=== PATIENT | female | born 1995 | race Caucasian/White ===

== ENCOUNTER 2019-12-28 17:35 | Emergency (ER) | payer BC ==
--- NOTE | 2019-12-28 17:39 | ERPHSYRPT ---
- History of Present Illness Time Seen by Provider: 12/28/19 17:38 Source: patient Exam Limitations: no limitations Physician History: This is a 24-year-old female with history of chronic recurring migraines. Patient took her Fioricet today and during the week without any benefit. patient denies head injury. Patient cannot take injectable morphine but can take Dilaudid and Toradol without any problems. Patient has a appointment with a neurologist (Dr. Monreal). This appointment is scheduled for approximately 1 week from today. Patient has not contacted her primary care physician. Patient is sensitive to light. She has mild nausea but no vomiting. Timing/Duration: week(s) (1) Head Pain Location: global Severity of Pain-Max: moderate Severity of Pain-Current: moderate Recent Head Trauma: no recent headache/trauma, chronic headaches Modifying Factors: Improves With: exposure to light, noise Associated Symptoms: sensitive to light Previous symptoms: same symptoms as today Allergies/Adverse Reactions: morphine Allergy (Mild, Verified 12/28/19 18:37) Penicillins Allergy (Mild, Verified 12/28/19 18:37) Home Medications: Butalb/Acetaminophen/Caffeine [Zjntuc-Aobesmyg-Zhxs 50-325-40] 1 tab PO Q4- 6HPRN PRN 12/28/19 [History] Triazolam 0.25 mg PO DAILY 12/28/19 [History] Hx Tetanus, Diphtheria Vaccination/Date Given: Yes (2009) - Review of Systems Constitutional: No Symptoms Eyes: No Symptoms Ears, Nose, & Throat: No Symptoms Respiratory: No Symptoms Cardiac: No Symptoms Abdominal/Gastrointestinal: No Symptoms Genitourinary Symptoms: No Symptoms Musculoskeletal: No Symptoms Skin: No Symptoms Neurological: Headache Psychological: No Symptoms Endocrine: No Symptoms Hematologic/Lymphatic: No Symptoms Immunological/Allergic: No Symptoms All Other Systems: Reviewed and Negative - Past Medical History Pertinent Past Medical History: Yes Neurological History: No Pertinent History ENT History: No Pertinent History Cardiac History: No Pertinent History Respiratory History: No Pertinent History Endocrine Medical History: No Pertinent History Musculoskeletal History: No Pertinent History GI Medical History: No Pertinent History History: No Pertinent History Psycho-Social History: Depression Female Reproductive Disorders: No Pertinent History Other Medical History: KIDNEY STONE - Past Surgical History Past Surgical History: Yes Neuro Surgical History: No Pertinent History Cardiac: No Pertinent History Respiratory: No Pertinent History Gastrointestinal: Appendectomy, Hernia Repair Genitourinary: No Pertinent History Musculoskeletal: No Pertinent History Female Surgical History: No Pertinent History Other Surgical History: TONSILECTOMY - Social History Smoking Status: Never smoker Exposure to second hand smoke: Yes Drug Use: none Patient Lives Alone: No - Nursing Vital Signs Nursing Vital Signs: Initial Vital Signs Temperature 97.9 F 12/28/19 17:41 Pulse Rate 79 12/28/19 17:41 Respiratory Rate 18 12/28/19 17:41 Blood Pressure 140/87 12/28/19 17:41 O2 Sat by Pulse Oximetry 96 12/28/19 17:41 Pain Scale Pain Intensity 8 - Physical Exam General Appearance: moderate distress, alert, anxiety Eye Exam: PERRL/EOMI, eyes nml inspection Ears, Nose, Throat Exam: normal ENT inspection, moist mucous membranes Neck Exam: normal inspection, non-tender, supple, full range of motion Respiratory Exam: No chest tenderness Gastrointestinal/Abdominal Exam: No tenderness Back Exam: normal inspection, normal range of motion, No CVA tenderness, No vertebral tenderness Extremity Exam: normal inspection, normal range of motion, pelvis stable Mental Status Exam: alert, oriented x 3, 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 synthesis Exam: normal hearing, normal speech, PERRL, tongue midline, No abnormal speech, No facial weakness Coordination/Gait Exam: normal finger to nose, normal gait, normal cerebellar function Motor/Sensory Exam: no motor deficit, no sensory deficit Skin Exam: normal color, warm, dry Lymphatic Exam: No adenopathy SpO2 Interpretation: normal O2 Delivery: Room Air Ordered Tests: Active Orders 24 hr Category Date Time Status HEAD WITHOUT CONTRAST [CT] Stat Exams 12/28/19 17:54 Taken Medication Summary Discontinued Medications Generic Name Dose Route Start Last Admin Trade Name Reina PRN Reason Stop Dose Admin Hydromorphone HCl 1 mg 12/28/19 18:35 12/28/19 18:41 Hydromorphone 1 Mg/Ml Ampule IM 12/28/19 18:36 1 mg STAT ONE Administration Hydromorphone HCl Confirm 12/28/19 18:39 Hydromorphone 1 Mg/Ml Ampule Administered 12/28/19 18:40 Dose 1 mg .ROUTE .STK-MED ONE Ketorolac Tromethamine 60 mg 12/28/19 18:36 12/28/19 18:41 Toradol 30 Mg Injection IM 12/28/19 18:37 60 mg STAT ONE Administration Ketorolac Tromethamine Confirm 12/28/19 18:39 Toradol 30 Mg Injection Administered 12/28/19 18:40 Dose 60 mg .ROUTE .STK-MED ONE Promethazine HCl 12.5 mg 12/28/19 18:36 12/28/19 18:41 Phenergan 25 Mg Inj IM 12/28/19 18:37 12.5 mg STAT ONE Administration Promethazine HCl Confirm 12/28/19 18:39 Phenergan 25 Mg Inj Administered 12/28/19 18:40 Dose 25 mg .ROUTE .STK-MED ONE - Progress Progress: improved, re-examined Air Movement: good Progress Note: 12/28/19 18:45 CAT scan of the head reveals no acute intracranial process Blood Culture(s) Obtained: No Antibiotics given: No Counseled pt/family regarding: diagnosis, need for follow-up, rad results - Departure Departure Disposition: Home Clinical Impression: Migraine headache Condition: Stable Critical Care Time: No Referrals: BONI RAMIREZ [Primary Care Provider] - Additional Instructions: Take your medications as prescribed. Follow-up with your primary care physician and neurologist tomorrow for further management. Call tomorrow to arrange a follow-up appointment.
[2019-12-28] MEDS ORDERED: Hydromorphone 1 mg/ml Ampule IM ONE (18:35)
[2019-12-28] MEDS ORDERED: TORAdol 30 mg Injection IM ONE (18:36)
[2019-12-28] MEDS ORDERED: Phenergan 25 MG INJ IM ONE (18:36)
[2019-12-28] MEDS ORDERED: Phenergan 25 MG INJ ONE (18:39)
[2019-12-28] MEDS ORDERED: Hydromorphone 1 mg/ml Ampule ONE (18:39)
[2019-12-28] MEDS ORDERED: TORAdol 30 mg Injection ONE (18:39)
[2019-12-28 19:29] VITALS: BP 119/78; PULSE 74; O2SAT 98
--- NOTE | 2019-12-29 08:37 | XRAY ---
Indication: Headache 1 week. No known injury. Multiple contiguous axial images obtained through the head without contrast. Comparison: None Normal appearing brain parenchyma, ventricles, and bony calvarium. There is moderate mucosal thickening of both sphenoid and lesser degree both ethmoid sinuses with tiny left sphenoid sinus fluid leveling. Mastoid air cells are clear. Impression: Paranasal sinus disease. Remaining CT head without contrast exam is normal.
== END 2019-12-28 19:29 | disposition home or self-care (01) ==
LOC: ED 17:35
DX: G43.909 Migraine, unspecified, not intractable, without status migrainosus (principal); Z79.899 Other long term (current) drug therapy
CPT/HCPCS: 70450; 96372; 99284; J1170; J1885; J2550

== ENCOUNTER 2021-06-03 08:44 | Emergency (ER) | payer BC, OTHER ==
[2021-06-03 08:56] VITALS: O2SAT 97
[2021-06-03] MEDS ORDERED: Sodium Chloride 0.9% 1000 ML 1,000 ML IV STA (09:05)
[2021-06-03] MEDS ORDERED: CLINDAMYCIN-D5W 900 MG/50 ML*** 900 MG/50 ML BAG IV STA (09:06)
[2021-06-03] MEDS ORDERED: SUBLIMAZE 100 MCG/2 ML IV ONE (09:07)
[2021-06-03] MEDS ORDERED: SUBLIMAZE 100 MCG/2 ML ONE (09:15)
[2021-06-03] MEDS ORDERED: CLINDAMYCIN-D5W 900 MG/50 ML*** 900 MG/50 ML BAG IV ONE (09:16)
[2021-06-03] MEDS ORDERED: Sodium Chloride 0.9% 1000 ML 1,000 ML ONE (09:16)
--- NOTE | 2021-06-03 09:35 | ERPHSYRPT ---
- History of Present Illness Time Seen by Provider: 06/03/21 09:00 Source: patient Exam Limitations: no limitations Patient Subjective Stated Complaint: pt here for swelling to lips and face since saturday, she was placed on pain pills and steriod then and is not any better Triage Nursing Assessment: pt alert walked in, resp easy, skin w/d/p, has chiped front tooth, lips,eyes face swollen Physician History: Patient presents with several days of pain in the upper maxillary dental area and swelling of that area as well as now swelling onto the face and pain up the nose. She did see her dentist who did not feel this was a dental problem and started her on some steroids and some pain medicine but no antibiotics. She has had a similar episode and in that case as well was not thought to be dental by the dentist but he put her on antibiotics and she got better. Denies any other pain or problems the previous episode was 4 months ago. She has had no fever chills or sweats that she is aware of it is getting worse. Timing/Duration: gradual onset Severity: severe ENT Location: nose, mouth, dental Prearrival Treatment: prescription meds (Steroids and pain pills) Modifying Factors: Improves With: nothing Associated Symptoms: facial pain/swelling, tooth pain Allergies/Adverse Reactions: morphine Allergy (Mild, Verified 06/03/21 09:02) Penicillins Allergy (Mild, Verified 06/03/21 09:02) Home Medications: Ketorolac Tromethamine [Toradol] 1 ea TID 06/03/21 [History] Prednisone 10 mg [Deltasone 10 mg] 1 ea DAILY 06/03/21 [History] Hx Tetanus, Diphtheria Vaccination/Date Given: Yes (2009) Hx Influenza Vaccination/Date Given: No Hx Pneumococcal Vaccination/Date Given: No Immunizations Up to Date: Yes Travel Risk - International Travel Have you traveled outside of the country in past 3 weeks: No - Coronavirus Screening Are you exhibiting any of the following symptoms?: No - Vaccine Status Have you recieved a Covid-19 vaccination: No - Review of Systems Constitutional: No Fever, No Chills Eyes: No Symptoms Ears, Nose, & Throat: Nose Pain, Mouth Pain Respiratory: No Cough, No Dyspnea Cardiac: No Chest Pain, No Edema, No Syncope Abdominal/Gastrointestinal: No Abdominal Pain, No Nausea, No Vomiting, No Diarrhea Genitourinary Symptoms: No Dysuria Musculoskeletal: No Back Pain, No Neck Pain Skin: No Rash Neurological: No Dizziness, No Focal Weakness, No Sensory Changes Psychological: No Symptoms Endocrine: No Symptoms All Other Systems: Reviewed and Negative - Past Medical History Pertinent Past Medical History: Yes Neurological History: No Pertinent History ENT History: No Pertinent History Cardiac History: No Pertinent History Respiratory History: No Pertinent History Endocrine Medical History: No Pertinent History Musculoskeletal History: No Pertinent History GI Medical History: No Pertinent History History: No Pertinent History Psycho-Social History: Depression Female Reproductive Disorders: No Pertinent History Other Medical History: KIDNEY STONE - Past Surgical History Past Surgical History: Yes Neuro Surgical History: No Pertinent History Cardiac: No Pertinent History Respiratory: No Pertinent History Gastrointestinal: Appendectomy, Hernia Repair Genitourinary: No Pertinent History Musculoskeletal: No Pertinent History Female Surgical History: No Pertinent History Other Surgical History: TONSILECTOMY - Social History Smoking Status: Current every day smoker How long have you smoked: years Exposure to second hand smoke: No Drug Use: none Patient Lives Alone: No - Female History Hx Last Menstrual Period: april Hx Now: No - Nursing Vital Signs Nursing Vital Signs: Initial Vital Signs Temperature 97.1 F 06/03/21 08:55 Pulse Rate 102 H 06/03/21 08:55 Respiratory Rate 18 06/03/21 08:55 Blood Pressure 113/69 06/03/21 08:55 O2 Sat by Pulse Oximetry 97 06/03/21 08:55 Pain Scale Pain Intensity 8 - Physical Exam General Appearance: mild distress, alert Eye Exam: bilateral eye: normal inspection, PERRL, EOMI Ear Exam: bilateral ear: auricle normal, canal normal, TM normal Nasal Exam: sinus tenderness Throat Exam: pharynx normal, dental tenderness, maxillary swelling, moist mucus membranes, No tonsillar exudate Neck Exam: supple Cardiovascular/Respiratory Exam: normal breath sounds, regular rate/rhythm Abdominal Exam: non-tender, soft Neurologic Exam: alert, oriented x 3, sensation nml, No motor deficits Skin Exam: normal color, warm, dry SpO2 Interpretation: normal SpO2: 97 O2 Delivery: Room Air - Course Nursing assessment & vital signs reviewed: Yes - CT Exams Maxillofacial Bones CT Interpretation: Tele-radiologist Report (Cellulitis of the face without evidence of abscess or necrotizing infection) Ordered Tests: Active Orders 24 hr Category Date Time Status IV Insertion STAT Care 06/03/21 09:05 Active SINUSES WITHOUT CONTRAST [CT] Stat Exams 06/03/21 09:05 Taken BLOOD CULTURE Stat Lab 06/03/21 09:55 Received CBC W DIFF Stat Lab 06/03/21 09:55 Completed CMP Stat Lab 06/03/21 09:55 Completed Medication Summary Discontinued Medications Generic Name Dose Route Start Last Admin Trade Name Reina PRN Reason Stop Dose Admin Fentanyl Citrate 50 mcg 06/03/21 09:07 06/03/21 09:19 Sublimaze 100 Mcg/2 Ml IV 06/03/21 09:08 50 mcg STAT ONE Administration Fentanyl Citrate Confirm 06/03/21 09:15 Sublimaze 100 Mcg/2 Ml Administered 06/03/21 09:16 Dose 100 mcg .ROUTE .STK-MED ONE Sodium Chloride 1,000 mls @ 999 mls/hr 06/03/21 09:05 06/03/21 10:26 Sodium Chloride 0.9% 1000 Ml IV 06/03/21 10:05 Infused .Q1H1M STA Infusion Clindamycin HCl/Dextrose 900 mg in 50 mls @ 100 mls/hr 06/03/21 09:06 06/03/21 10:26 Clindamycin-D5w 900 Mg/50 Ml IV 06/03/21 09:35 Infused STAT STA Infusion Clindamycin HCl/Dextrose Confirm 06/03/21 09:16 Clindamycin-D5w 900 Mg/50 Ml Administered 06/03/21 09:17 Dose 900 mg in 50 mls @ ud IV .STK-MED ONE Sodium Chloride Confirm 06/03/21 09:16 Sodium Chloride 0.9% 1000 Ml Administered 06/03/21 09:17 Dose 1,000 mls @ ud .ROUTE .STK-MED ONE Oxycodone/Acetaminophen 1 tab 06/03/21 11:19 06/03/21 11:20 Percocet Tablet 5/325mg PO 06/03/21 11:20 1 tab STAT STA Administration Oxycodone/Acetaminophen Confirm 06/03/21 11:18 Percocet Tablet 5/325mg Administered 06/03/21 11:19 Dose 1 tab .ROUTE .STK-MED ONE Lab/Rad Data: Laboratory Result Diagrams 06/03/21 09:55 07/24/21 09:55 Laboratory Results 06/03/21 06/03/21 Range/Units 09:55 09:55 WBC 14.9 H (4.0-10.5) K/mm3 RBC 4.73 (4.1-5.4) M/mm3 Hgb 14.1 (12.0-16.0) gm/dl Hct 43.0 (35-47) % MCV 90.9 (78-100) fl MCH 29.8 (26-32) pg MCHC 32.8 (32-36) g/dl RDW 14.8 H (11.5-14.0) % Plt Count 344 (150-450) K/mm3 MPV 10.7 (7.5-11.0) fl Gran % 81.4 H (36.0-66.0) % Eos # (Auto) 0.13 (0-0.5) Absolute Lymphs (auto) 1.42 (1.0-4.6) Absolute Monos (auto) 1.21 (0.0-1.3) Lymphocytes % 9.5 L (24.0-44.0) % Monocytes % 8.1 (0.0-12.0) % Eosinophils % 0.9 (0.00-5.0) % Basophils % 0.1 (0.0-0.4) % Absolute Granulocytes 12.17 H (1.4-6.9) Basophils # 0.01 (0-0.4) Sodium 141 (137-145) mmol/L Potassium 3.7 (3.5-5.1) mmol/L Chloride 106 (98-107) mmol/L Carbon Dioxide 26 (22-30) mmol/L Anion Gap 13.7 (5-15) MEQ/L BUN 12 (7-17) mg/dL Creatinine 0.62 (0.52-1.04) mg/dL Estimated GFR > 60.0 ML/MIN Glucose 99 (74-106) mg/dL Calcium 8.6 (8.4-10.2) mg/dL Total Bilirubin 0.50 (0.2-1.3) mg/dL AST 16 (14-36) U/L ALT 19 (0-35) U/L Alkaline Phosphatase 51 (38-126) U/L Serum Total Protein 7.1 (6.3-8.2) g/dL Albumin 4.0 (3.5-5.0) g/dL - Progress Progress: unchanged - Departure Departure Disposition: Home Clinical Impression: Cellulitis Condition: Stable Critical Care Time: No Referrals: RUTH CHRISTIE, [employer] [Primary Care Provider] - Instructions: Cellulitis (Skin Infection), Adult (DC) Prescriptions: Oxycodone HCl/Acetaminophen [Percocet 5-325 mg Tablet] 1 each PO Q6H PRN PRN #12 tablet MDD 4 PRN Reason: Pain clindamycin HCL [Cleocin HCl] 300 mg PO TID 10 Days #30 capsule
[2021-06-03 10:10] LABS: Absolute Neutrophil Ct (ANC) 12.17 (1.4-6.9); BASOPHIL % 0.1 % (0.0-0.4); Basophil (Absolute #) 0.01 (0-0.4); Eosinophil % 0.9 % (0.00-5.0); Eosinophil (Absolute #) 0.13 (0-0.5); Hemoglobin 14.1 gm/dl (12.0-16.0); Lymphocyte (Absolute #) 1.42 (1.0-4.6); Lymphocytes % 9.5 % (24.0-44.0); Mean Cell Volume 90.9 fl (78-100); Mean Corpuscular Hemoglobin 29.8 pg (26-32); Mean Corpuscular Hgb Concent. 32.8 g/dl (32-36); Mean Platelet Volume 10.7 fl (7.5-11.0); Monocyte (Absolute #) 1.21 (0.0-1.3); Monocytes % 8.1 % (0.0-12.0); Neutrophil % 81.4 % (36.0-66.0); Platelet Count 344 K/mm3 (150-450); Red Blood Count 4.73 M/mm3 (4.1-5.4); Red Cell Distribution Width 14.8 % (11.5-14.0); White Blood Count 14.9 K/mm3 (4.0-10.5)
[2021-06-03 10:23] LABS: ALKALINE PHOSPHATASE 51 U/L (38-126); ANION GAP 13.7 MEQ/L (5-15); BLOOD UREA NITROGEN 12 mg/dL (7-17); CHLORIDE 106 mmol/L (98-107); Calcium 8.6 mg/dL (8.4-10.2); Carbon Dioxide 26 mmol/L (22-30); Creatinine 1 0.62 mg/dL (0.52-1.04); EST GLOMERULAR FILTRATION RATE > 60.0 ML/MIN; Glucose 99 mg/dL (74-106); Potassium 3.7 mmol/L (3.5-5.1); SGOT/AST 16 U/L (14-36); SGPT/ALT 19 U/L (0-35); SODIUM 141 mmol/L (137-145); Total Protein 7.1 g/dL (6.3-8.2)
[2021-06-03] MEDS ORDERED: PERCOCET TABLET 5/325MG ONE (11:18)
[2021-06-03] MEDS ORDERED: PERCOCET TABLET 5/325MG PO STA (11:19)
[2021-06-03 11:25] VITALS: BP 113/75; PULSE 80
--- NOTE | 2021-06-03 19:14 | XRAY ---
Indication: Face swelling and pain 2 days. Multiple contiguous axial images obtained through the sinuses. Sagittal and coronal reformatted images obtained. Comparison: None There are few bilateral dental amalgams producing beam artifact limiting these levels. Floor of the maxillary sinuses demonstrates minimal mucosal thickening without fluid leveling. Remaining paranasal sinuses and nasal passages are clear. No acute fracture, suspicious bony lesions, or radiopaque foreign body. Minimal nasal septal deviation to the left. Mid face demonstrates mild soft tissue swelling bilaterally without focal fluid collection or air. Remaining visualized noncontrast soft tissues including orbits and base of the brain are unremarkable. Impression: 1. Mild bilateral facial soft tissue swelling, possible cellulitis in the right clinical setting. 2. Minimal maxillary sinus disease. Comment: Preliminary interpretation made by [facility]. No critical discrepancy.
== END 2021-06-03 11:45 | disposition home or self-care (01) ==
LOC: ED 08:44
DX: L03.211 Cellulitis of face (principal)
CPT/HCPCS: 36415; 70486; 80053; 85025; 87040; 96360; 96365; 96374; 99284; J3010; A9270-GY

== ENCOUNTER 2021-11-19 12:14 | Emergency (ER) | payer OTHER ==
[2012-08-14 12:17] VITALS: BP 118/67
== END 2021-11-19 13:41 | disposition left against medical advice (07) ==
LOC: ED 12:14
DX: Z53.21 Procedure and treatment not carried out due to patient leaving prior to being seen by health care provider (principal)

== ENCOUNTER 2022-06-14 22:01 | Emergency (ER) | payer OTHER ==
[2022-06-14] MEDS ORDERED: TORAdol 30 mg Injection IM ONE (22:32)
--- NOTE | 2022-06-14 23:00 | ERPHSYRPT ---
- History of Present Illness Time Seen by Provider: 06/14/22 22:03 Source: patient Exam Limitations: no limitations Patient Subjective Stated Complaint: pt states "I was mowing and went in to take a shower and could not stand on my leg." Triage Nursing Assessment: pt came into the er via wheelchair; pt is axo x4; c/o RLE pain; pt states 4/10 pain to RLE; pt states swelling and reddness present to RLE; mild swelling to rt calf; reddenss and abrasions present to rt perez; strong rt pedal pulses; cap refill >3 seconds; vitals wnl Physician History: 26-year-old female presented in the ER with chief complaint of right lower extremity pain since evening. Patient reports she did a push lawnmower and weed eating, later took a shower and was having difficulty standing. Does not remember any obvious fall or trauma. No pain in the foot. Has some abrasion on the lower leg. Moderate to severe sharp pain with standing and movements and better with resting. No fever or chills reported. Timing/Duration: today, constant, sudden, worse Quality: painful Severity: moderate, severe Location: extremities Possible Causes: no cause identified Associated Symptoms: rash, swelling/mass/lumps Allergies/Adverse Reactions: morphine Allergy (Mild, Verified 06/14/22 22:08) Difficulty Breathing Penicillins Allergy (Mild, Verified 06/14/22 22:08) Difficulty Breathing Hx Tetanus, Diphtheria Vaccination/Date Given: No (unknown) Hx Influenza Vaccination/Date Given: No Hx Pneumococcal Vaccination/Date Given: No Travel Risk - International Travel Have you traveled outside of the country in past 3 weeks: No - Coronavirus Screening Are you exhibiting any of the following symptoms?: No Close contact with a COVID-19 positive Pt in past 14-21 Days: No - Vaccine Status Have you recieved a Covid-19 vaccination: No - Review of Systems Constitutional: No Symptoms Ears, Nose, & Throat: No Symptoms Respiratory: No Symptoms Cardiac: No Symptoms Abdominal/Gastrointestinal: No Symptoms Genitourinary Symptoms: No Symptoms Musculoskeletal: No Symptoms Skin: Rash, Skin Lesions Neurological: No Symptoms Psychological: No Symptoms Endocrine: No Symptoms Hematologic/Lymphatic: No Symptoms Immunological/Allergic: No Symptoms - Past Medical History Pertinent Past Medical History: Yes Neurological History: No Pertinent History ENT History: No Pertinent History Cardiac History: No Pertinent History Respiratory History: No Pertinent History Endocrine Medical History: No Pertinent History Musculoskeletal History: No Pertinent History GI Medical History: No Pertinent History History: No Pertinent History Psycho-Social History: Depression Female Reproductive Disorders: No Pertinent History Other Medical History: KIDNEY STONE - Past Surgical History Past Surgical History: Yes Neuro Surgical History: No Pertinent History Cardiac: No Pertinent History Respiratory: No Pertinent History Gastrointestinal: Appendectomy, Hernia Repair Genitourinary: No Pertinent History Musculoskeletal: No Pertinent History Female Surgical History: Section Other Surgical History: TONSILECTOMY, section x3, biopsy to rt breast x3; tumor 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 breast - Social History Smoking Status: Current every day smoker How long have you smoked: years Exposure to second hand smoke: Yes Drug Use: none Patient Lives Alone: No - Female History Hx Now: No - Nursing Vital Signs Nursing Vital Signs: Initial Vital Signs Temperature 98.4 F 06/14/22 22:09 Pulse Rate 85 06/14/22 22:09 Respiratory Rate 18 06/14/22 22:09 Blood Pressure 132/88 06/14/22 22:09 O2 Sat by Pulse Oximetry 98 06/14/22 22:09 Pain Scale Pain Intensity 7 - Physical Exam General Appearance: no apparent distress, alert Eye Exam: PERRL/EOMI Ears, Nose, Throat Exam: normal ENT inspection Neck Exam: normal inspection, full range of motion Respiratory Exam: normal breath sounds, lungs clear Cardiovascular Exam: regular rate/rhythm, normal heart sounds Gastrointestinal/Abdomen Exam: soft, No tenderness Back Exam: normal inspection Extremity Exam: inflammation, tenderness (Anterior lower leg with abrasion, mild swelling, warm, tender to touch.) Neurologic Exam: alert, oriented x 3, cooperative Skin Exam: normal color, abrasion SpO2 Interpretation: normal SpO2: 98 O2 Delivery: Room Air Ordered Tests: Active Orders 24 hr Category Date Time Status ARTERIAL UNILAT/LTD LOWER EXT [US] Stat Exams 06/14/22 22:33 Ordered LOWER LEG Stat Exams 06/14/22 23:08 Taken VENOUS UNILAT/LIMITED EXTREMIT [US] Stat Exams 06/14/22 22:33 Taken BLOOD CULTURE Stat Lab 06/14/22 22:50 Received CBC W DIFF Stat Lab 06/14/22 22:40 Completed CMP Stat Lab 06/14/22 22:40 Received Medication Summary Generic Name Dose Route Start Last Admin Trade Name Reina PRN Reason Stop Dose Admin Trimethoprim/Sulfamethoxazole 1 tab 06/14/22 23:58 Smz/Tmp Ds Tablet 1 Tablet PO 06/14/22 23:59 STAT STA Discontinued Medications Generic Name Dose Route Start Last Admin Trade Name Reina PRN Reason Stop Dose Admin Ketorolac Tromethamine 30 mg 06/14/22 22:32 06/14/22 23:10 Ketorolac Tromethamine 30 Mg/Ml Inj IM 06/14/22 22:33 Not Given STAT ONE Ketorolac Tromethamine 30 mg 06/14/22 23:10 06/14/22 23:11 Ketorolac Tromethamine 30 Mg/Ml Inj IV 06/14/22 23:11 30 mg STAT ONE Administration Ketorolac Tromethamine Confirm 06/14/22 23:09 Ketorolac Tromethamine 30 Mg/Ml Inj Administered 06/14/22 23:10 Dose 30 mg .ROUTE .Stockpile-MED ONE Lab/Rad Data: Laboratory Result Diagrams 06/14/22 22:40 Laboratory Results 06/14/22 Range/Units 22:40 WBC 13.3 H (4.0-10.5) x10^3/uL RBC 4.96 (4.1-5.4) x10^6/uL Hgb 15.0 (12.0-16.0) g/dL Hct 45.4 (35-47) % MCV 91.5 (78-100) fL MCH 30.2 (26-32) pg MCHC 33.0 (32-36) g/dL RDW 13.3 (11.5-14.0) % Plt Count 395 (150-450) x10^3/uL MPV 10.6 (7.5-11.0) fL Gran % 64.8 (36.0-66.0) % Immature Gran % (Auto) 0.3 (0.00-0.4) % Nucleat RBC Rel Count 0.0 (0.00-0.1) % Eos # (Auto) 0.31 (0-0.5) x10^3/uL Immature Gran # (Auto) 0.04 H (0.00-0.03) x10^3u/L Absolute Lymphs (auto) 3.33 (1.0-4.6) x10^3/uL Absolute Monos (auto) 0.96 (0.0-1.3) x10^3/uL Absolute Nucleated RBC 0.00 (0.00-0.01) x10^3u/L Lymphocytes % 25.0 (24.0-44.0) % Monocytes % 7.2 (0.0-12.0) % Eosinophils % 2.3 (0.00-5.0) % Basophils % 0.4 (0.0-0.4) % Absolute Granulocytes 8.65 H (1.4-6.9) x10^3/uL Basophils # 0.05 (0-0.4) x10^3/uL - Progress Progress: improved Progress Note: 06/14/22 23:58 She is given symptomatic treatment for pain. She has a white count of 13. Rule out fracture, DVT and no arterial occlusion. Has some redness, possibly cellulitis from abrasion. Started on Bactrim. Recommended Tylenol/ibuprofen outpatient for pain control and primary care follow-up. Discussed signs symptoms of worsening needing return to ER which she seems understanding. Counseled pt/family regarding: lab results, diagnosis, need for follow-up, rad results - Departure Departure Disposition: Home Clinical Impression: Cellulitis, leg Condition: Stable Critical Care Time: No Referrals: [facility]RIST[facility] [Primary Care Provider] - Follow up/PCP as directed (1-2 days for reevaluation) Instructions: Cellulitis (Skin Infection), Adult ED Additional Instructions: Take Tylenol/ibuprofen as needed for pain. Keep it elevated. Follow-up with primary care for reevaluation in 1 to 2 days. Return to ER for increasing pain swelling, redness, fever chills or difficulty ambulation. Prescriptions: Ibuprofen 600 mg PO Q6HPRN PRN 10 Days #20 tablet PRN Reason: Pain Smz/Tmp Ds Tablet [Bactrim Ds Tablet] 1 udtab PO BID #14 tablet
[2022-06-14] MEDS ORDERED: TORAdol 30 mg Injection ONE (23:09)
[2022-06-14] MEDS ORDERED: TORAdol 30 mg Injection IV ONE (23:10)
[2022-06-14 23:22] VITALS: PULSE 82
[2022-06-14 23:47] LABS: Absolute Neutrophil Ct (ANC) 8.65 x10^3/uL (1.4-6.9); Basophil (Absolute #) 0.05 x10^3/uL (0-0.4); Eosinophil % 2.3 % (0.00-5.0); Eosinophil (Absolute #) 0.31 x10^3/uL (0-0.5); Hematocrit 45.4 % (35-47); Lymphocyte (Absolute #) 3.33 x10^3/uL (1.0-4.6); Mean Cell Volume 91.5 fL (78-100); Mean Corpuscular Hemoglobin 30.2 pg (26-32); Mean Platelet Volume 10.6 fL (7.5-11.0); Monocyte (Absolute #) 0.96 x10^3/uL (0.0-1.3); Monocytes % 7.2 % (0.0-12.0); Neutrophil % 64.8 % (36.0-66.0); Platelet Count 395 x10^3/uL (150-450); Red Blood Count 4.96 x10^6/uL (4.1-5.4); Red Cell Distribution Width 13.3 % (11.5-14.0); White Blood Count 13.3 x10^3/uL (4.0-10.5)
[2022-06-14 23:58] LABS: ALBUMIN 4.3 g/dL (3.5-5.0); ALKALINE PHOSPHATASE 65 U/L (38-126); BLOOD UREA NITROGEN 15 mg/dL (7-17); CHLORIDE 106 mmol/L (98-107); Calcium 9.1 mg/dL (8.4-10.2); Carbon Dioxide 24 mmol/L (22-30); Creatinine 1 0.72 mg/dL (0.52-1.04); EST GLOMERULAR FILTRATION RATE > 60.0 ML/MIN; Glucose 82 mg/dL (74-106); Potassium 3.6 mmol/L (3.5-5.1); SGOT/AST 29 U/L (14-36); SGPT/ALT 26 U/L (0-35); SODIUM 140 mmol/L (137-145); Total Protein 7.8 g/dL (6.3-8.2)
[2022-06-14] MEDS ORDERED: BACTRIM DS TABLET PO STA (23:58)
[2022-06-15 00:03] VITALS: BP 116/71; O2SAT 96
[2022-06-15] MEDS ORDERED: BACTRIM DS TABLET PO ONE (00:04)
--- NOTE | 2022-06-15 08:33 | XRAY ---
Exam: Duplex Doppler Ultrasound of the right lower extremity. Comparison: [None.] Indication: 26-year-old female with right lower extremity pain. Findings: The examination of the right lower extremity was carried out in the usual manner imaging architectural representative sections of the common femoral vein through the popliteal vein. The posterior tibial veins were also evaluated. Normal color flow was seen throughout. Normal spontaneous and phasic flow was seen at all architectural representative sections. There was normal transducer compression and doppler signal augmentation at all levels. The greater saphenous vein demonstrated within the proximal right thigh and reveal normal compression, color blood flow, and Doppler signal. Impression: 1. No evidence of deep venous thrombosis within the right lower extremity.
--- NOTE | 2022-06-15 08:37 | XRAY ---
Exam: Two-view (4 images) right lower leg series from 06/14/2022. Comparison: [None.] Indication: The patient push mowed her yard and has a swollen right lower leg and redness now. Findings: 2 AP images and 2 lateral images of the right lower leg were obtained. I see no acute fracture, periosteal reaction/callus, or other significant focal bone lesion. Both the right knee joint space and ankle mortise appear unremarkable. There is a tiny plantar right calcaneal spur. No radiopaque soft tissue foreign body is seen. Impression: 1. No fracture or other significant bone abnormality is seen within the right lower leg.
== END 2022-06-15 00:17 | disposition home or self-care (01) ==
LOC: ED 22:01
DX: L03.115 Cellulitis of right lower limb (principal); S80.811A Abrasion, right lower leg, initial encounter; M79.604 Pain in right leg; Z72.0 Tobacco use; Z28.310 Unvaccinated for COVID-19
CPT/HCPCS: 36415; 73590; 80053; 85025; 87040; 93971; 96374; 99283; J1885; A9270-GY

== ENCOUNTER 2022-06-16 10:29 | Emergency (ER) | payer OTHER ==
[2022-06-16 10:40] VITALS: O2SAT 97
[2022-06-16] MEDS ORDERED: TORAdol 30 mg Injection IM ONE (10:58)
[2022-06-16] MEDS ORDERED: TORAdol 30 mg Injection ONE (11:06)
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
[2022-06-16 11:55] VITALS: BP 121/73; PULSE 82
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
== END 2022-06-16 11:54 | disposition home or self-care (01) ==
LOC: ED 10:29
DX: S92.412A Displaced fracture of proximal phalanx of left great toe, initial encounter for closed fracture (principal); S90.32XA Contusion of left foot, initial encounter; Y04.8XXA Assault by other bodily force, initial encounter; Y92.59 Other trade areas as the place of occurrence of the external cause; M25.572 Pain in left ankle and joints of left foot; R51.9 Headache, unspecified; Z72.0 Tobacco use; Z28.310 Unvaccinated for COVID-19
CPT/HCPCS: 73610; 73630; 96372; 99283; J1885

== ENCOUNTER 2022-09-30 22:36 | Emergency (ER) | payer OTHER ==
[2022-09-30 23:38] VITALS: BP 126/80; O2SAT 98
--- NOTE | 2022-09-30 23:55 | ERPHSYRPT ---
- History of Present Illness Time Seen by Provider: 09/30/22 23:40 Patient Subjective Stated Complaint: L ankle pain after getting out of bed and rolling the ankle Triage Nursing Assessment: pt ambulatory to bed with self crutches from home, pt alert and acting appropriate for age, pt c/o L ankle pain after getting out of bed and twisting her ankle and heard a "pop", +2 pedal pulse on L foot Physician History: Patient is a 27-year-old white female who presents from home after suffering an ankle injury. She was laying and her left foot went to sleep and was used went to stand on it her ankle twisted causing a popping sensation and lateral pain. She does have a previous broken toe. Unrelated to tonight's injury. Method of Injury: twisted Occurred: just prior to arrival Quality: aching Severity of Pain-Max: moderate Severity of Pain-Current: moderate Lower Extremities Pain: ankle: left Modifying Factors: Improves With: movement Associated Symptoms: unable to bear weight Allergies/Adverse Reactions: morphine Allergy (Mild, Verified 09/30/22 23:31) Difficulty Breathing Penicillins Allergy (Mild, Verified 09/30/22 23:31) Difficulty Breathing Hx Tetanus, Diphtheria Vaccination/Date Given: Yes (unknown) Hx Influenza Vaccination/Date Given: No Hx Pneumococcal Vaccination/Date Given: No Immunizations Up to Date: Yes Travel Risk - International Travel Have you traveled outside of the country in past 3 weeks: No - Coronavirus Screening Are you exhibiting any of the following symptoms?: No Close contact with a COVID-19 positive Pt in past 14-21 Days: No - Vaccine Status Have you recieved a Covid-19 vaccination: No - Review of Systems Constitutional: No Fever, No Chills Eyes: No Symptoms Ears, Nose, & Throat: No Symptoms Respiratory: No Cough, No Dyspnea Cardiac: No Chest Pain, No Edema, No Syncope Abdominal/Gastrointestinal: No Abdominal Pain, No Nausea, No Vomiting, No Diarrhea Genitourinary Symptoms: No Dysuria Musculoskeletal: Joint Pain, Joint Swelling (Left ankle), No Back Pain, No Neck Pain Skin: No Rash Neurological: No Dizziness, No Focal Weakness, No Sensory Changes Psychological: No Symptoms Endocrine: No Symptoms All Other Systems: Reviewed and Negative - Past Medical History Pertinent Past Medical History: Yes Neurological History: No Pertinent History ENT History: No Pertinent History Cardiac History: No Pertinent History Respiratory History: No Pertinent History Endocrine Medical History: No Pertinent History Musculoskeletal History: No Pertinent History GI Medical History: No Pertinent History History: No Pertinent History Psycho-Social History: Depression Female Reproductive Disorders: No Pertinent History Other Medical History: KIDNEY STONE - Past Surgical History Past Surgical History: Yes Neuro Surgical History: No Pertinent History Cardiac: No Pertinent History Respiratory: No Pertinent History Gastrointestinal: Appendectomy, Hernia Repair Genitourinary: No Pertinent History Musculoskeletal: No Pertinent History Female Surgical History: Section Other Surgical History: TONSILECTOMY, section x3, biopsy to rt breast x3; tumor 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 breast - Social History Smoking Status: Current every day smoker How long have you smoked: years Exposure to second hand smoke: Yes Drug Use: none Patient Lives Alone: No - Female History Hx Last Menstrual Period: 09/28/2022 Hx Now: No - Nursing Vital Signs Nursing Vital Signs: Initial Vital Signs Temperature 97.4 F 09/30/22 23:32 Pulse Rate 94 H 09/30/22 23:32 Respiratory Rate 18 09/30/22 23:32 Blood Pressure 126/80 09/30/22 23:32 O2 Sat by Pulse Oximetry 98 09/30/22 23:32 Pain Scale Pain Intensity 8 - Physical Exam General Appearance: mild distress Eyes, Ears, Nose, Throat Exam: normal ENT inspection Neck Exam: normal inspection Cardiovascular/Respiratory Exam: no respiratory distress Back Exam: normal inspection, normal range of motion Hips Exam: bilateral: non-tender, normal inspection, normal range of motion, no evidence of injury Legs Exam: bilateral leg: non-tender, normal inspection, normal range of motion Knees Exam: bilateral knee: non-tender, normal inspection, normal range of motion Ankle Exam: left ankle: limited range of motion, pain, soft tissue tenderness, swelling Foot Exam: bilateral foot: non-tender, normal inspection, normal range of motion, no evidence of injury Neuro/Tendon Exam: normal sensation, normal motor functions, normal tendon functions Mental Status Exam: alert, oriented x 3 Skin Exam: normal color, warm, dry SpO2 Interpretation: normal SpO2: 98 O2 Delivery: Room Air Procedures - Splinting Time of Procedure: 23:57 Location of Splint: Left, Ankle Type of Splint: Air Cast Splint Applied By: ED Nurse Pre-Proc Neuro Vasc Exam: normal Post-Proc Neuro Vasc Exam: neurovascular intact - Course Nursing assessment & vital signs reviewed: Yes - Radiology Exams Left Ankle X-ray Interpretation: Interpreted by me, Negative Ordered Tests: Active Orders 24 hr Category Date Time Status ANKLE (3 VIEWS) Stat Exams 09/30/22 23:53 Taken - Progress Progress: improved - Departure Departure Disposition: Home Clinical Impression: Ankle sprain Condition: Stable Critical Care Time: No Referrals: RUTH CHRISTIE MOLD STRIPPER [Primary Care Provider] - Follow up/PCP as directed Instructions: Ankle Sprain (DC) Prescriptions: Hydrocodone/Acetaminophen [Hydrocodone-Acetamin 5-325 mg] 1 tab PO Q6HPRN PRN 2 Days #8 tablet MDD 4 PRN Reason: Pain
[2022-10-01 00:23] VITALS: PULSE 76
--- NOTE | 2022-10-01 08:48 | XRAY ---
Indication: Pain following injury. Comparison: June 16, 2022 3 view left ankle demonstrates new tiny nondisplaced cortical fracture cuboid bone of uncertain chronicity. Stable plantar heel spur. No other bony, articular, or soft tissue abnormalities. Comment: Fracture not reported by interpreting ER clinician. Telephone report given to Dr. Farah at 0848 hrs on Oct 01, 2022.
== END 2022-10-01 00:23 | disposition home or self-care (01) ==
LOC: ED 22:36
DX: S93.402A Sprain of unspecified ligament of left ankle, initial encounter (principal); X50.0XXA Overexertion from strenuous movement or load, initial encounter; Y92.003 Bedroom of unspecified non-institutional (private) residence as the place of occurrence of the external cause; Z72.0 Tobacco use; Z79.891 Long term (current) use of opiate analgesic; Z28.310 Unvaccinated for COVID-19
CPT/HCPCS: 73610; 99283

== ENCOUNTER 2023-05-24 20:22 | Emergency (ER) | payer OTHER ==
[2023-05-24] MEDS ORDERED: Hydromorphone 1 mg/ml Injection IV ONE (20:41)
[2023-05-24] MEDS ORDERED: Sodium Chloride 0.9% 1000 ML 1,000 ML IV STA (20:41)
[2023-05-24] MEDS ORDERED: PROTONIX 40 MG IV IV ONE ×2 (20:41→20:46)
[2023-05-24] MEDS ORDERED: Hydromorphone 1 mg/ml Injection ONE (20:46)
[2023-05-24] MEDS ORDERED: Sodium Chloride 0.9% 1000 ML 1,000 ML ONE (20:46)
--- NOTE | 2023-05-24 20:59 | ERPHSYRPT ---
- History of Present Illness Time Seen by Provider: 05/24/23 20:56 Historian: patient Exam Limitations: no limitations Patient Subjective Stated Complaint: abd pain Triage Nursing Assessment: pt brought back from vehicle via wheelchair by this RN. Pt alert and oriented x3, pleasant and cooperative. Pt c/o upper abd pain [place] Pt describes pain as a 10 and sharp, radiates under the the ribcage on both sides. LBM today. Pt denies any nausea or vomiting or diarrhea. Pt has a hx of hernia that was repaired approx 14 years ago. Physician History: Pt c/o upper abd pain which [place] Pt describes pain as a 10 and sharp, radiates under the the ribcage on both sides. LBM today. Pt denies any nausea or vomiting or diarrhea. Pt has a hx of hernia that was repaired approx 14 years ago. Timing/Duration: today Activities at Onset: none Quality: cramping Abdominal Pain Onset Location: epigastric Pain Radiation: back Severity of Pain-Current: moderate Modifying Factors: Improves With: nothing Associated Symptoms: denies symptoms Previous symptoms: same symptoms as today (140years ago) Body Map: 1 - pain Allergies/Adverse Reactions: morphine Allergy (Mild, Verified 05/24/23 20:42) Difficulty Breathing Penicillins Allergy (Mild, Verified 05/24/23 20:42) Difficulty Breathing Hx Tetanus, Diphtheria Vaccination/Date Given: Yes Hx Influenza Vaccination/Date Given: No Hx Pneumococcal Vaccination/Date Given: No Travel Risk - International Travel Have you traveled outside of the country in past 3 weeks: No - Coronavirus Screening Are you exhibiting any of the following symptoms?: No Close contact with a COVID-19 positive Pt in past 14-21 Days: No - Vaccine Status Have you recieved a Covid-19 vaccination: No - Review of Systems Constitutional: No Fever, No Chills Eyes: No Symptoms Ears, Nose, & Throat: No Symptoms Respiratory: No Cough, No Dyspnea Cardiac: No Chest Pain, No Edema, No Syncope Abdominal/Gastrointestinal: Abdominal Pain, No Nausea, No Vomiting, No Diarrhea Genitourinary Symptoms: No Dysuria Musculoskeletal: No Back Pain, No Neck Pain Skin: No Rash Neurological: No Dizziness, No Focal Weakness, No Sensory Changes Psychological: No Symptoms Endocrine: No Symptoms All Other Systems: Reviewed and Negative - Past Medical History Pertinent Past Medical History: Yes Neurological History: No Pertinent History ENT History: No Pertinent History Cardiac History: No Pertinent History Respiratory History: No Pertinent History Endocrine Medical History: No Pertinent History Musculoskeletal History: No Pertinent History GI Medical History: Gallbladder Disease History: No Pertinent History Psycho-Social History: Depression Female Reproductive Disorders: No Pertinent History Other Medical History: KIDNEY STONE - Past Surgical History Past Surgical History: Yes Neuro Surgical History: No Pertinent History Cardiac: No Pertinent History Respiratory: No Pertinent History Gastrointestinal: Appendectomy, Hernia Repair Genitourinary: No Pertinent History Musculoskeletal: No Pertinent History Female Surgical History: Section Other Surgical History: TONSILECTOMY, section x3, biopsy to rt breast x3; tumor 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 breast - Social History Smoking Status: Current every day smoker How long have you smoked: 10 yrs Exposure to second hand smoke: Yes Drug Use: none Patient Lives Alone: No - Female History Hx Last Menstrual Period: 2 weeks ago Hx Now: No - Nursing Vital Signs Nursing Vital Signs: Initial Vital Signs Temperature 97.5 F 05/24/23 20:29 Pulse Rate 111 H 05/24/23 20:29 Respiratory Rate 20 05/24/23 20:29 Blood Pressure 113/80 05/24/23 20:29 O2 Sat by Pulse Oximetry 97 05/24/23 20:29 Pain Scale Pain Intensity 8 - Physical Exam General Appearance: no apparent distress, alert Eye Exam: PERRL/EOMI, eyes nml inspection Ears, Nose, Throat Exam: normal ENT inspection, pharynx normal, moist mucous membranes Neck Exam: normal inspection, non-tender, supple, full range of motion Respiratory Exam: normal breath sounds, lungs clear, No respiratory distress Cardiovascular Exam: regular rate/rhythm, normal heart sounds Gastrointestinal/Abdomen Exam: soft, tenderness (epigatric area), No mass Back Exam: normal inspection, normal range of motion, No CVA tenderness, No vert ebral tenderness Extremity Exam: normal inspection, normal range of motion, pelvis stable Neurologic Exam: alert, oriented x 3, cooperative, normal mood/affect, nml cerebellar function, sensation nml, No motor deficits Skin Exam: normal color, warm, dry SpO2: 97 Ordered Tests: Active Orders 24 hr Category Date Time Status IV Insertion STAT Care 05/24/23 20:45 Active ABDOMEN AND PELVIS W/0 CONTRAS [CT] Stat Exams 05/24/23 20:41 Completed AMYLASE Stat Lab 05/24/23 20:45 Completed CBC W DIFF Stat Lab 05/24/23 20:45 Completed CMP Stat Lab 05/24/23 20:45 Completed HCG QUALITATIVE, SERUM Stat Lab 05/24/23 20:45 Completed LIPASE Stat Lab 05/24/23 20:45 Completed UA W/RFX UR CULTURE Stat Lab 05/24/23 20:45 Completed Urine Triage Profile Stat Lab 05/24/23 20:45 Completed Medication Summary Discontinued Medications Generic Name Dose Route Start Last Admin Trade Name Freq PRN Reason Stop Dose Admin Famotidine 20 mg 05/24/23 21:58 05/24/23 22:01 Famotidine 20 Mg/1 Vial IV 05/24/23 21:59 20 mg STAT ONE Administration Famotidine Confirm 05/24/23 22:01 Famotidine 20 Mg/1 Vial Administered 05/24/23 22:02 Dose 20 mg IV .STK-MED ONE Hydromorphone HCl 1 mg 05/24/23 20:41 05/24/23 20:50 Hydromorphone 1 Mg/1ml Inj IV 05/24/23 20:42 1 mg STAT ONE Administration Hydromorphone HCl Confirm 05/24/23 20:46 Hydromorphone 1 Mg/1ml Inj Administered 05/24/23 20:47 Dose 1 mg .ROUTE .STK-MED ONE Sodium Chloride 1,000 mls @ 999 mls/hr 05/24/23 20:41 05/24/23 21:51 Sodium Chloride 0.9% 1000 Ml IV 05/24/23 21:41 Infused .Q1H1M STA Infusion Sodium Chloride Confirm 05/24/23 20:46 Sodium Chloride 0.9% 1000 Ml Administered 05/24/23 20:47 Dose 1,000 mls @ ud .ROUTE .STK-MED ONE Ceftriaxone Sodium/Dextrose 1 g in 50 mls @ 100 mls/hr 05/24/23 21:36 21:42 Rocephin 1 Gm-D5w 50 Ml Bag IV 05/24/23 22:05 100 mls/hr STAT STA 100 mls/hr Administration Ceftriaxone Sodium/Dextrose Confirm 05/24/23 21:41 Rocephin 1 Gm-D5w 50 Ml Bag Administered 05/24/23 21:42 Dose 1 g in 50 mls @ ud IV .STK-MED ONE Pantoprazole Sodium 40 mg 05/24/23 20:41 05/24/23 20:50 Pantoprazole 40 Mg Vial IV 05/24/23 20:42 40 mg STAT ONE Administration Pantoprazole Sodium Confirm 05/24/23 20:46 Pantoprazole 40 Mg Vial Administered 05/24/23 20:47 Dose 40 mg IV .STK-MED ONE Lab/Rad Data: Laboratory Result Diagrams 05/24/23 20:45 05/24/23 20:45 Laboratory Results 05/24/23 05/24/23 05/24/23 Range/Units 20:45 20:45 20:45 WBC 19.1 H (4.0-10.5) x10^3/uL RBC 5.05 (4.1-5.4) x10^6/uL Hgb 15.2 (12.0-16.0) g/dL Hct 45.7 (35-47) % MCV 90.5 (78-100) fL MCH 30.1 (26-32) pg MCHC 33.3 (32-36) g/dL RDW 13.5 (11.5-14.0) % Plt Count 413 (150-450) x10^3/uL MPV 10.2 (7.5-11.0) fL Gran % 75.8 H (36.0-66.0) % Immature Gran % (Auto) 0.4 (0.00-0.4) % Nucleat RBC Rel Count 0.0 (0.00-0.1) % Eos # (Auto) 0.31 (0-0.5) x10^3/uL Immature Gran # (Auto) 0.07 H (0.00-0.03) x10^3u/L Absolute Lymphs (auto) 2.91 (1.0-4.6) x10^3/uL Absolute Monos (auto) 1.26 (0.0-1.3) x10^3/uL Absolute Nucleated RBC 0.00 (0.00-0.01) x10^3u/L Lymphocytes % 15.3 L (24.0-44.0) % Monocytes % 6.6 (0.0-12.0) % Eosinophils % 1.6 (0.00-5.0) % Basophils % 0.3 (0.0-0.4) % Absolute Granulocytes 14.45 H (1.4-6.9) x10^3/uL Basophils # 0.06 (0-0.4) x10^3/uL Sodium 141 (137-145) mmol/L Potassium 3.5 (3.5-5.1) mmol/L Chloride 107 (98-107) mmol/L Carbon Dioxide 23 (22-30) mmol/L Anion Gap 14.2 (5-15) MEQ/L BUN 12 (7-17) mg/dL Creatinine 0.66 (0.52-1.04) mg/dL Estimated GFR > 60.0 ML/MIN Glucose 119 H (74-106) mg/dL Calcium 9.0 (8.4-10.2) mg/dL Total Bilirubin 0.50 (0.2-1.3) mg/dL AST 30 (14-36) U/L ALT 38 H (0-35) U/L Alkaline Phosphatase 59 (38-126) U/L Serum Total Protein 8.2 (6.3-8.2) g/dL Albumin 4.3 (3.5-5.0) g/dL Amylase 59 (30-110) U/L Lipase 48 (23-300) U/L Serum HCG, Qual NEGATIVE (NEGATIVE) Urine Color (Yellow) Urine Appearance (Clear) Urine pH (4.6-8.0) Ur Specific [place] (1.005-1.030) Urine Protein (Negative) Urine Glucose (UA) (Negative) mg/dL Urine Ketones (Negative) Urine Blood (Negative) Urine Nitrite (Negative) Urine Bilirubin (Negative) Urine Urobilinogen (0.2) mg/dL Ur Leukocyte Esterase (Negative) U Hyaline Cast (Auto) (0-2) /LPF Urine Microscopic RBC (0-5) /HPF Urine Microscopic WBC (0-5) /HPF Ur Epithelial Cells (None Seen) /HPF Urine Bacteria (None Seen) /HPF Urine Culture Reflexed (NO) Urine Opiates Level (NEGATIVE) Ur Methadone (NEGATIVE) Urine Barbiturates (NEGATIVE) Ur Phencyclidine (PCP) (NEGATIVE) Urine Amphetamine (NEGATIVE) U Benzodiazepine Level (NEGATIVE) Urine Cocaine (NEGATIVE) Urine Marijuana (THC) (NEGATIVE) 05/24/23 05/24/23 Range/Units 20:45 20:45 WBC (4.0-10.5) x10^3/uL RBC (4.1-5.4) x10^6/uL Hgb (12.0-16.0) g/dL Hct (35-47) % MCV (78-100) fL MCH (26-32) pg MCHC (32-36) g/dL RDW (11.5-14.0) % Plt Count (150-450) x10^3/uL MPV (7.5-11.0) fL Gran % (36.0-66.0) % Immature Gran % (Auto) (0.00-0.4) % Nucleat RBC Rel Count (0.00-0.1) % Eos # (Auto) (0-0.5) x10^3/uL Immature Gran # (Auto) (0.00-0.03) x10^3u/L Absolute Lymphs (auto) (1.0-4.6) x10^3/uL Absolute Monos (auto) (0.0-1.3) x10^3/uL Absolute Nucleated RBC (0.00-0.01) x10^3u/L Lymphocytes % (24.0-44.0) % Monocytes % (0.0-12.0) % Eosinophils % (0.00-5.0) % Basophils % (0.0-0.4) % Absolute Granulocytes (1.4-6.9) x10^3/uL Basophils # (0-0.4) x10^3/uL Sodium (137-145) mmol/L Potassium (3.5-5.1) mmol/L Chloride (98-107) mmol/L Carbon Dioxide (22-30) mmol/L Anion Gap (5-15) MEQ/L BUN (7-17) mg/dL Creatinine (0.52-1.04) mg/dL Estimated GFR ML/MIN Glucose (74-106) mg/dL Calcium (8.4-10.2) mg/dL Total Bilirubin (0.2-1.3) mg/dL AST (14-36) U/L ALT (0-35) U/L Alkaline Phosphatase (38-126) U/L Serum Total Protein (6.3-8.2) g/dL Albumin (3.5-5.0) g/dL Amylase (30-110) U/L Lipase (23-300) U/L Serum HCG, Qual (NEGATIVE) Urine Color Yellow (Yellow) Urine Appearance Cloudy A (Clear) Urine pH 5.5 (4.6-8.0) Ur Specific [place] >=1.030 A (1.005-1.030) Urine Protein Negative (Negative) Urine Glucose (UA) Negative (Negative) mg/dL Urine Ketones Negative (Negative) Urine Blood Negative (Negative) Urine Nitrite Negative (Negative) Urine Bilirubin Negative (Negative) Urine Urobilinogen 1.0 A (0.2) mg/dL Ur Leukocyte Esterase Negative (Negative) U Hyaline Cast (Auto) NONE SEEN (0-2) /LPF Urine Microscopic RBC 0-2 (0-5) /HPF Urine Microscopic WBC 0-2 (0-5) /HPF Ur Epithelial Cells Rare (None Seen) /HPF Urine Bacteria None Seen (None Seen) /HPF Urine Culture Reflexed NO (NO) Urine Opiates Level POSITIVE (NEGATIVE) Ur Methadone NEGATIVE (NEGATIVE) Urine Barbiturates NEGATIVE (NEGATIVE) Ur Phencyclidine (PCP) NEGATIVE (NEGATIVE) Urine Amphetamine NEGATIVE (NEGATIVE) U Benzodiazepine Level NEGATIVE (NEGATIVE) Urine Cocaine NEGATIVE (NEGATIVE) Urine Marijuana (THC) NEGATIVE (NEGATIVE) ABDOMEN AND PELVIS W/0 CONTRAS Emergency Contact Phone: Procedure ID: [id number] Reason For Order: epigastric abdominal pain Referring Physician: ILIA RUBIN Order Description: Procedure Notes: Patient Complaint: Facility: [facility] Facility Date Transcribed: 05/24/2023 Transcribed By: Frederic Hooks Reporting Physician: Frederic Hooks Report Text Indication: Epigastric pain. Multiple contiguous axial images obtained through the abdomen and pelvis without contrast. Comparison: August 14, 2012 Lung bases clear. Heart not enlarged. Noncontrasted stomach and bowel loops appear nonobstructed. Appendectomy reported. No free fluid/air. Remaining liver, gallbladder, pancreas, spleen, adrenal glands, kidneys, ureters, bladder, uterus, and aorta are unremarkable for noncontrast exam. Osseous structures intact. No ventral or inguinal hernias. Impression: CT abdomen/pelvis without contrast exam is negative. Signed by: Frederic Hooks Date Signed: 05/24/2023 PatientID: [id number] Patient Name: STEFFEN GARIBAY Exam Date: 05/24/2023 Procedure: ABDOMEN AND PELVIS W/0 CONTRAS - Progress Progress: improved, pain not gone completely Counseled pt/family regarding: lab results, diagnosis, need for follow-up, rad results Medical Desision Making - Independent Historian Additional History obtained from: Mother - Discussion of managment Reviewed:: Test results, Need for additional workup Agreed on:: Treatment plan - Diagnostic Testing Diagnostic test were ordered, analyzed, and reviewed by me: Yes Radiological Interpretation: Discussed w/ radiologist, Teleradiologist Report - Risk of complications The pt has a mod risk of morbidity or mortality based on: Need for prescription drug management - Departure Departure Disposition: Home Clinical Impression: Intractable epigastric abdominal pain, Gastritis and duodenitis Condition: Stable Critical Care Time: Yes Critical Care Time(excluding separately billable procedures): Critical 30-74 mins Referrals: RUTH CHRISTIE, [facility] [Primary Care Provider] - Follow up/PCP as directed Instructions: Severe Abdominal Pain, Adult (DC), Gastritis (DC), [place] Diet Additional Instructions: Discharge/Care Plan STEFFEN GARIBAY was seen on 05/24/23 in the Emergency Room. The patient was counseled regarding Diagnosis,Lab results, Imaging studies, need for follow up and when to return to the Emergency Room. Prescriptions given: Discharge Note I have spoken with the patient and/or caregivers. I have explained the patient's condition, diagnosis and treatment plan based on the information available to me at this time. I have answered the patient's and/or caregiver's questions and addressed any concerns. The patient and/or caregivers have as good understanding of the patient's diagnosis, condition and treatment plan as can be expected at this point. The vital signs have been stable. The patient's condition is stable and appropriate for discharge from the emergency department. The patient will pursue further outpatient evaluation with the primary care physician or other designated or consulting physician as outlined in the discharge instructions. The patient and/or caregivers are agreeable to this plan of care and follow-up instructions have been explained in detail. The patient and/or caregivers have received these instruction. The patient/and or caregivers are aware that any significant change in condition or worsening of symptoms should prompt an immediate return to this or the closest emergency department or call 911. STEFFEN GARIBAY was seen on 05/24/23 n the Emergency Room. At that time you were treated for an emergent condition, during your visit Laboratory, Radiology and/or other procedures may have been ordered. It is very important that you follow-up with your Primary Care Physician RUTH CHRISTIE within the next 24-48 hours to review your Emergency Room visit and the final results of testing that was ordered. Some test results such as Urine Cultures, Blood Cultures, and other cultures if ordered will not be finalized for 24-48 hours. If you do not have a Primary Care Provider please call the medical records department at [phone] to obtain a copy of your results or you may sign into our patient portal to obtain these results by visiting us @ [email or web address] and completing the following steps: 1. Click on the Patient Portal link 2. Click the Patient Self Enrollment Link to complete the enrollment form and entering your 3. Once the enrollment form is completed you will receive an email with a temporary ID and password at the email address you provided. 4. Next choose a user name and password. Your user name must be at least 4 characters long and your password must be at least 4 characters long. 5. Choose a security question from the list and provide your answer to the question. If you already have signed into the Health Portal you may access your Health Care Information 03/06 by the following steps: 1. Login to our website @ [email or web address] 2. Enter your original user name and password. FAQS The [facility] Health Portal is an online tool that contains your Lab Results, Radiology Reports, Visit History, Discharge Instructions and Health Summary Lab and Radiology Results will not be available for 72 hours on the portal. The Portal is a secure site, passwords are encryted and URLs are re-written so they cannot be copied and pasted. You and authorized family members are the only ones who can access your Portal. Also there is a timeout feature that protects your information if you leave the Portal page open. If you have technical difficulty please use the Contact Us link on the page this will allow you to submit any questions you have regarding the Portal or you may contact the Medical Record Department at [phone]. Prescriptions: Smz/Tmp Ds Tablet [Bactrim Ds Tablet] 1 udtab PO BID #14 tablet PANTOPRAZOLE 40 mg Tablet [Protonix 40MG Tablet] 40 mg PO DAILY #30 tab
[2023-05-24 21:02] LABS: Absolute Neutrophil Ct (ANC) 14.45 x10^3/uL (1.4-6.9); BASOPHIL % 0.3 % (0.0-0.4); Basophil (Absolute #) 0.06 x10^3/uL (0-0.4); Eosinophil % 1.6 % (0.00-5.0); Eosinophil (Absolute #) 0.31 x10^3/uL (0-0.5); Hematocrit 45.7 % (35-47); Hemoglobin 15.2 g/dL (12.0-16.0); IMMATURE GRAN # 0.07 x10^3u/L (0.00-0.03); IMMATURE GRAN % 0.4 % (0.00-0.4); Lymphocyte (Absolute #) 2.91 x10^3/uL (1.0-4.6); Lymphocytes % 15.3 % (24.0-44.0); Mean Cell Volume 90.5 fL (78-100); Mean Corpuscular Hemoglobin 30.1 pg (26-32); Mean Corpuscular Hgb Concent. 33.3 g/dL (32-36); Mean Platelet Volume 10.2 fL (7.5-11.0); Monocyte (Absolute #) 1.26 x10^3/uL (0.0-1.3); Monocytes % 6.6 % (0.0-12.0); Neutrophil % 75.8 % (36.0-66.0); Platelet Count 413 x10^3/uL (150-450); Red Blood Count 5.05 x10^6/uL (4.1-5.4); Red Cell Distribution Width 13.5 % (11.5-14.0); White Blood Count 19.1 x10^3/uL (4.0-10.5)
[2023-05-24 21:16] LABS: ALBUMIN 4.3 g/dL (3.5-5.0); ALKALINE PHOSPHATASE 59 U/L (38-126); AMYLASE 59 U/L (30-110); ANION GAP 14.2 MEQ/L (5-15); BLOOD UREA NITROGEN 12 mg/dL (7-17); CHLORIDE 107 mmol/L (98-107); Carbon Dioxide 23 mmol/L (22-30); Creatinine 1 0.66 mg/dL (0.52-1.04); EST GLOMERULAR FILTRATION RATE > 60.0 ML/MIN; Glucose 119 mg/dL (74-106); LIPASE 48 U/L (23-300); Potassium 3.5 mmol/L (3.5-5.1); SGOT/AST 30 U/L (14-36); SGPT/ALT 38 U/L (0-35); SODIUM 141 mmol/L (137-145); Total Protein 8.2 g/dL (6.3-8.2)
[2023-05-24 21:18] LABS: ADD URINE CULTURE? NO (NO); Appearance Cloudy (Clear); Bacteria None Seen /HPF (None Seen); Bilirubin Negative (Negative); Blood Negative (Negative); Epithelial Cells Rare /HPF (None Seen); Glucose, Urine Negative (Negative); Hyaline Casts NONE SEEN /LPF (0-2); Ketones Negative (Negative); Leukocyte Esterase Negative (Negative); Nitrite Negative (Negative); Ph 5.5 (4.6-8.0); Protein,Urine Dip Negative (Negative); RBC 0-2 /HPF (0-5); Specific Gravity >=1.030 (1.005-1.030); WBC 0-2 /HPF (0-5)
[2023-05-24 21:20] LABS: HCG SERUM TEST NEGATIVE (NEGATIVE)
[2023-05-24 21:21] LABS: Amphetamine,Urine NEGATIVE (NEGATIVE); Barbiturate,Urine NEGATIVE (NEGATIVE); Benzodiazepine,Urine NEGATIVE (NEGATIVE); Cocaine,Urine NEGATIVE (NEGATIVE); Methadone,Urine NEGATIVE (NEGATIVE); Opiate,Urine POSITIVE (NEGATIVE); PCP,Urine NEGATIVE (NEGATIVE); THC,Urine NEGATIVE (NEGATIVE)
[2023-05-24] MEDS ORDERED: ROCEPHIN 1 Gm-D5w 50 ml Bag** 1 G/50 ML IVPB IV STA (21:36)
[2023-05-24] MEDS ORDERED: ROCEPHIN 1 Gm-D5w 50 ml Bag** 1 G/50 ML IVPB IV ONE (21:41)
[2023-05-24] MEDS ORDERED: Pepcid 20 MG VIAL IV ONE ×2 (21:58→22:01)
[2023-05-24 22:02] VITALS: BP 108/58; PULSE 89
--- NOTE | 2023-05-24 22:06 | XRAY ---
Indication: Epigastric pain. Multiple contiguous axial images obtained through the abdomen and pelvis without contrast. Comparison: August 14, 2012 Lung bases clear. Heart not enlarged. Noncontrasted stomach and bowel loops appear nonobstructed. Appendectomy reported. No free fluid/air. Remaining liver, gallbladder, pancreas, spleen, adrenal glands, kidneys, ureters, bladder, uterus, and aorta are unremarkable for noncontrast exam. Osseous structures intact. No ventral or inguinal hernias. Impression: CT abdomen/pelvis without contrast exam is negative.
[2023-05-24 22:13] VITALS: O2SAT 97
== END 2023-05-24 22:29 | disposition home or self-care (01) ==
LOC: ED 20:22
DX: K29.70 Gastritis, unspecified, without bleeding (principal); K29.80 Duodenitis without bleeding; R10.13 Epigastric pain; Z28.310 Unvaccinated for COVID-19; Z72.0 Tobacco use
CPT/HCPCS: 36000; 36415; 74176; 80053; 80307; 81001; 82150; 83690; 84703; 85025; 96360; 96365; 96374; 96375; 99284; 99291; J0696; J1170

== ENCOUNTER 2023-11-01 22:54 | Emergency (ER) | payer OTHER ==
--- NOTE | 2023-11-01 23:12 | ERPHSYRPT ---
- History of Present Illness Time Seen by Provider: 11/01/23 23:12 Source: patient Exam Limitations: no limitations Physician History: This is an overweight 28-year-old white female patient who approximately 10 PM was helping move furniture items when she jumped out of the truck by jumping out of the side of it and as soon as she landed up "bolt of lightening" sharp st abbing pain penetrated her lower back. The pain onset was immediate. It has been severe ever since. Patient does have a history of depression. She is a daily smoker cigarettes. Patient has taken Dilaudid in the past without any adverse reactions. She denies head injury. She denies headache. She denies neck pain, she denies neck injury. She has no chest pain. She denies abdominal pain. She has no pain in any of her extremities. Timing/Duration: today Method of Injury: other (Jumped off the side of a stationary back of truck) Quality: sharp, stabbing Back Pain Location: lumbar spine Severity of Pain-Max: moderate Severity of Pain-Current: moderate Associated Symptoms: lower back pain, muscle spasms, No urinary incontinence, No loss of bowel control, No problems urinating, No numbness in legs/feet, No ting ling in legs/feet Previous symptoms: no prior history Allergies/Adverse Reactions: morphine Allergy (Mild, Verified 11/01/23 23:22) Difficulty Breathing Penicillins Allergy (Mild, Verified 11/01/23 23:22) Difficulty Breathing Home Medications: Vilazodone HCl 1 tab PO DAILY 11/01/23 [History] Hx Tetanus, Diphtheria Vaccination/Date Given: Yes Hx Influenza Vaccination/Date Given: No Hx Pneumococcal Vaccination/Date Given: No Travel Risk - International Travel Have you traveled outside of the country in past 3 weeks: No - Coronavirus Screening Are you exhibiting any of the following symptoms?: No Close contact with a COVID-19 positive Pt in past 14-21 Days: No - Vaccine Status Have you recieved a Covid-19 vaccination: No - Review of Systems Constitutional: No Symptoms Eyes: No Symptoms Ears, Nose, & Throat: No Symptoms Respiratory: No Symptoms Cardiac: No Symptoms Abdominal/Gastrointestinal: No Symptoms Genitourinary Symptoms: No Symptoms Musculoskeletal: Back Pain, Injury, Other (Jumped off the side of the back of a stationary truck while helping move furniture) Skin: No Symptoms Neurological: No Symptoms Psychological: No Symptoms Endocrine: No Symptoms Hematologic/Lymphatic: No Symptoms Immunological/Allergic: No Symptoms All Other Systems: Reviewed and Negative - Past Medical History Pertinent Past Medical History: Yes Neurological History: No Pertinent History ENT History: No Pertinent History Cardiac History: No Pertinent History Respiratory History: No Pertinent History Endocrine Medical History: No Pertinent History Musculoskeletal History: No Pertinent History GI Medical History: Gallbladder Disease History: No Pertinent History Psycho-Social History: Depression Female Reproductive Disorders: No Pertinent History Other Medical History: KIDNEY STONE - Past Surgical History Past Surgical History: Yes Neuro Surgical History: No Pertinent History Cardiac: No Pertinent History Respiratory: No Pertinent History Gastrointestinal: Appendectomy, Hernia Repair Genitourinary: No Pertinent History Musculoskeletal: No Pertinent History Female Surgical History: Section Other Surgical History: TONSILECTOMY, section x3, biopsy to rt breast x3; tumor 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 breast - Social History Smoking Status: Current every day smoker How long have you smoked: 10 yrs Exposure to second hand smoke: Yes Drug Use: none Patient Lives Alone: No - Nursing Vital Signs Nursing Vital Signs: Initial Vital Signs Temperature 98.9 F 11/01/23 23:12 Pulse Rate 132 H 11/01/23 23:12 Respiratory Rate 20 11/01/23 23:12 Blood Pressure 140/104 11/01/23 23:12 O2 Sat by Pulse Oximetry 97 11/01/23 23:12 Pain Scale Pain Intensity [Lower Back] 9 Pain Intensity 5 - Physical Exam General Appearance: mild distress, alert, anxiety, obese Eye Exam: PERRL/EOMI, eyes nml inspection Ears, Nose, Throat Exam: normal ENT inspection, moist mucous membranes Neck Exam: normal inspection, non-tender, supple, full range of motion Respiratory Exam: airway intact, No chest tenderness, No respiratory distress Cardiovascular Exam: tachycardia Gastrointestinal Exam: soft, normal bowel sounds, No tenderness Pelvic Exam: not done Rectal Exam: not done Back Exam: normal inspection, vertebral tenderness (Lumbar level), decreased range of motion, muscle spasm Extremity Exam: normal inspection (Lumbar level), normal range of motion, pelvis stable Neurologic Exam: alert, oriented x 3, cooperative, assistant operator II-XII nml as tested, normal mood/affect, nml cerebellar function, nml station & gait, sensation nml Skin Exam: normal color, warm, dry Lymphatic Exam: No adenopathy SpO2 Interpretation: normal O2 Delivery: Room Air - Course Nursing assessment & vital signs reviewed: Yes Ordered Tests: Active Orders 24 hr Category Date Time Status IV Insertion STAT Care 11/02/23 00:16 Active LUMBAR SPINE W/O [CT] Stat Exams 11/02/23 00:18 Completed CBC W DIFF Stat Lab 11/02/23 00:22 Completed CMP Stat Lab 11/02/23 00:22 Completed HCG QUALITATIVE, SERUM Stat Lab 11/02/23 00:22 Completed UA W/RFX UR CULTURE Stat Lab 11/02/23 02:55 Completed Medication Summary Generic Name Dose Route Start Last Admin Trade Name Freq PRN Reason Stop Dose Admin Sodium Chloride 1,000 mls @ 100 mls/hr 11/02/23 00:30 11/02/23 00:42 Sodium Chloride 0.9% 1000 Ml IV 12/02/23 00:29 100 mls/hr .Q10H BRADEN Administration Discontinued Medications Generic Name Dose Route Start Last Admin Trade Name Freq PRN Reason Stop Dose Admin Hydromorphone HCl 1 mg 11/02/23 00:16 11/02/23 00:42 Hydromorphone 1 Mg/1ml Inj IV 11/02/23 00:17 1 mg STAT ONE Administration Hydromorphone HCl Confirm 11/02/23 00:37 Hydromorphone 1 Mg/1ml Inj Administered 11/02/23 00:38 Dose 1 mg .ROUTE .STK-MED ONE Hydromorphone HCl 0.5 mg 11/02/23 02:46 11/02/23 03:29 Hydromorphone 1 Mg/1ml Inj IV 11/02/23 02:47 0.5 mg STAT ONE Administration Hydromorphone HCl Confirm 11/02/23 03:27 Hydromorphone 1 Mg/1ml Inj Administered 11/02/23 03:28 Dose 1 mg .ROUTE .STK-MED ONE Ketorolac Tromethamine 30 mg 11/02/23 02:46 11/02/23 03:28 Ketorolac Tromethamine 30 Mg/Ml Inj IV 11/02/23 02:47 30 mg STAT ONE Administration Ketorolac Tromethamine Confirm 11/02/23 03:27 Ketorolac Tromethamine 30 Mg/Ml Inj Administered 11/02/23 03:28 Dose 30 mg .ROUTE .STK-MED ONE Ondansetron HCl 4 mg 11/02/23 00:16 11/02/23 00:42 Ondansetron Hcl 4 Mg/2 Ml Vial IV 11/02/23 00:17 4 mg STAT ONE Administration Ondansetron HCl Confirm 11/02/23 00:37 Ondansetron Hcl 4 Mg/2 Ml Vial Administered 11/02/23 00:38 Dose 4 mg .ROUTE .STK-MED ONE Orphenadrine Citrate 60 mg 11/02/23 00:17 11/02/23 00:42 Orphenadrine Citrate 60 Mg/2 Ml Vial IV 11/02/23 00:18 60 mg STAT ONE Administration Orphenadrine Citrate Confirm 11/02/23 00:37 Orphenadrine Citrate 60 Mg/2 Ml Vial Administered 11/02/23 00:38 Dose 60 mg .ROUTE .STK-MED ONE Lab/Rad Data: Laboratory Result Diagrams 11/02/23 00:22 11/02/23 00:22 Laboratory Results 11/02/23 11/02/23 11/02/23 Range/Units 02:55 00:22 00:22 WBC (4.0-10.5) x10^3/uL RBC (4.1-5.4) x10^6/uL Hgb (12.0-16.0) g/dL Hct (35-47) % MCV (78-100) fL MCH (26-32) pg MCHC (32-36) g/dL RDW (11.5-14.0) % Plt Count (150-450) x10^3/uL MPV (7.5-11.0) fL Gran % (36.0-66.0) % Immature Gran % (Auto) (0.00-0.4) % Nucleat RBC Rel Count (0.00-0.1) % Eos # (Auto) (0-0.5) x10^3/uL Immature Gran # (Auto) (0.00-0.03) x10^3u/L Absolute Lymphs (auto) (1.0-4.6) x10^3/uL Absolute Monos (auto) (0.0-1.3) x10^3/uL Absolute Nucleated RBC (0.00-0.01) x10^3u/L Lymphocytes % (24.0-44.0) % Monocytes % (0.0-12.0) % Eosinophils % (0.00-5.0) % Basophils % (0.0-0.4) % Absolute Granulocytes (1.4-6.9) x10^3/uL Basophils # (0-0.4) x10^3/uL Sodium 137 (137-145) mmol/L Potassium 3.8 (3.5-5.1) mmol/L Chloride 106 (98-107) mmol/L Carbon Dioxide 23 (22-30) mmol/L Anion Gap 11.7 (5-15) MEQ/L BUN 9 (7-17) mg/dL Creatinine 0.56 (0.52-1.04) mg/dL Estimated GFR 126.6 ML/MIN Glucose 104 (74-106) mg/dL Calcium 9.2 (8.4-10.2) mg/dL Total Bilirubin 0.50 (0.2-1.3) mg/dL AST 31 (14-36) U/L ALT 50 H (0-35) U/L Alkaline Phosphatase 68 (38-126) U/L Serum Total Protein 7.9 (6.3-8.2) g/dL Albumin 4.5 (3.5-5.0) g/dL Serum HCG, Qual NEGATIVE (NEGATIVE) Urine Color Yellow (Yellow) Urine Appearance Clear (Clear) Urine pH 6.5 (4.6-8.0) Ur Specific Bellamy 1.020 (1.005-1.030) Urine Protein Negative (Negative) Urine Glucose (UA) Negative (Negative) mg/dL Urine Ketones Negative (Negative) Urine Blood Negative (Negative) Urine Nitrite Negative (Negative) Urine Bilirubin Negative (Negative) Urine Urobilinogen 0.2 (0.2) mg/dL Ur Leukocyte Esterase Negative (Negative) U Hyaline Cast (Auto) NONE SEEN (0-2) /LPF Urine Microscopic RBC 0-2 (0-5) /HPF Urine Microscopic WBC 0-2 (0-5) /HPF Ur Epithelial Cells Rare (None Seen) /HPF Urine Bacteria None Seen (None Seen) /HPF Urine Culture Reflexed NO (NO) 11/02/23 Range/Units 00:22 WBC 20.2 H (4.0-10.5) x10^3/uL RBC 5.07 (4.1-5.4) x10^6/uL Hgb 15.3 (12.0-16.0) g/dL Hct 46.2 (35-47) % MCV 91.1 (78-100) fL MCH 30.2 (26-32) pg MCHC 33.1 (32-36) g/dL RDW 13.3 (11.5-14.0) % Plt Count 412 (150-450) x10^3/uL MPV 10.8 (7.5-11.0) fL Gran % 77.7 H (36.0-66.0) % Immature Gran % (Auto) 0.3 (0.00-0.4) % Nucleat RBC Rel Count 0.0 (0.00-0.1) % Eos # (Auto) 0.19 (0-0.5) x10^3/uL Immature Gran # (Auto) 0.07 H (0.00-0.03) x10^3u/L Absolute Lymphs (auto) 3.07 (1.0-4.6) x10^3/uL Absolute Monos (auto) 1.14 (0.0-1.3) x10^3/uL Absolute Nucleated RBC 0.00 (0.00-0.01) x10^3u/L Lymphocytes % 15.2 L (24.0-44.0) % Monocytes % 5.6 (0.0-12.0) % Eosinophils % 0.9 (0.00-5.0) % Basophils % 0.3 (0.0-0.4) % Absolute Granulocytes 15.70 H (1.4-6.9) x10^3/uL Basophils # 0.06 (0-0.4) x10^3/uL Sodium (137-145) mmol/L Potassium (3.5-5.1) mmol/L Chloride (98-107) mmol/L Carbon Dioxide (22-30) mmol/L Anion Gap (5-15) MEQ/L BUN (7-17) mg/dL Creatinine (0.52-1.04) mg/dL Estimated GFR ML/MIN Glucose (74-106) mg/dL Calcium (8.4-10.2) mg/dL Total Bilirubin (0.2-1.3) mg/dL AST (14-36) U/L ALT (0-35) U/L Alkaline Phosphatase (38-126) U/L Serum Total Protein (6.3-8.2) g/dL Albumin (3.5-5.0) g/dL Serum HCG, Qual (NEGATIVE) Urine Color (Yellow) Urine Appearance (Clear) Urine pH (4.6-8.0) Ur Specific Bellamy (1.005-1.030) Urine Protein (Negative) Urine Glucose (UA) (Negative) mg/dL Urine Ketones (Negative) Urine Blood (Negative) Urine Nitrite (Negative) Urine Bilirubin (Negative) Urine Urobilinogen (0.2) mg/dL Ur Leukocyte Esterase (Negative) U Hyaline Cast (Auto) (0-2) /LPF Urine Microscopic RBC (0-5) /HPF Urine Microscopic WBC (0-5) /HPF Ur Epithelial Cells (None Seen) /HPF Urine Bacteria (None Seen) /HPF Urine Culture Reflexed (NO) - Progress Progress: improved, pain not gone completely, re-examined Progress Note: 11/02/23 00:34 This patient's medical issue is 1 of moderate complexity. Level complex in the workup performed is based on review of the patient's past medical history, review the patient's medication list, reviewed patient's drug allergy list, hist ory present illness and physical findings on examination. The workup in the patient includes placement of intravenous line, infusion normal saline solution, infusion of Dilaudid intravenously, infusion of Norflex intravenously, infusion of antiemetic intravenously, CBC, CMP, urinalysis, test, lumbar spine CT scan without contrast. 11/02/23 01:43 This patient's laboratory data was interpreted by me. Patient has a 20,000 white count which is likely secondary to stress reaction. However, the urinalysis is still pending and it may be secondary to urinary tract infection. Will follow-up on the test. CT scan of the lumbar spine was interpreted by the radiologist and I reviewed the impression. The impression states no obvious vertebral fracture, dislocation, subluxation or collapse. There is mild degenerative disc disease without significant canal stenosis. 11/02/23 02:45 We are still waiting for the urine for urinalysis. The other lab results I interpreted. There is no evidence of any acute or emergent findings. Counseled pt/family regarding: lab results, diagnosis, rad results Medical Desision Making - Independent Historian Additional History obtained from: Spouse - Diagnostic Testing Diagnostic test were ordered, analyzed, and reviewed by me: Yes Radiological Interpretation: Reviewed by me, Teleradiologist Report - Risk of complications The pt has a mod risk of morbidity or mortality based on: Need for prescription drug management - Departure Departure Disposition: Home Clinical Impression: Back strain Condition: Stable Critical Care Time: No Referrals: RUTH CHRISTIE DRUGLESS DOCTOR [Primary Care Provider] - Follow up/PCP as directed Additional Instructions: Ice pack to tender area 3 times a day for the first 48 hours. Add ibuprofen 600 mg orally 3 times a day with food for 5 days. Follow-up with your primary care provider on 11/05/2023 for further evaluation management. Prescriptions: Oxycodone HCl/Acetaminophen [Percocet 5-325 mg Tablet] 1 each PO Q8H PRN PRN #6 tablet MDD 3 PRN Reason: Moderate To Severe Pain Orphenadrine Citrate 100 mg [Norflex 100 MG Tablet] 100 mg PO BID #10 tab
[2023-11-01 23:14] VITALS: TEMP 98.9
[2023-11-02] MEDS ORDERED: Hydromorphone 1 mg/ml Injection IV ONE ×2 (00:16→02:46)
[2023-11-02] MEDS ORDERED: Zofran 4 MG/2 ML VIAL IV ONE (00:16)
[2023-11-02] MEDS ORDERED: Norflex 60 MG/2 ML IV ONE (00:17)
[2023-11-02 00:26] LABS: BASOPHIL % 0.3 % (0.0-0.4); Basophil (Absolute #) 0.06 x10^3/uL (0-0.4); Eosinophil % 0.9 % (0.00-5.0); Eosinophil (Absolute #) 0.19 x10^3/uL (0-0.5); Hematocrit 46.2 % (35-47); Hemoglobin 15.3 g/dL (12.0-16.0); IMMATURE GRAN # 0.07 x10^3u/L (0.00-0.03); IMMATURE GRAN % 0.3 % (0.00-0.4); Lymphocyte (Absolute #) 3.07 x10^3/uL (1.0-4.6); Lymphocytes % 15.2 % (24.0-44.0); Mean Cell Volume 91.1 fL (78-100); Mean Corpuscular Hemoglobin 30.2 pg (26-32); Mean Corpuscular Hgb Concent. 33.1 g/dL (32-36); Mean Platelet Volume 10.8 fL (7.5-11.0); Monocyte (Absolute #) 1.14 x10^3/uL (0.0-1.3); Monocytes % 5.6 % (0.0-12.0); Neutrophil % 77.7 % (36.0-66.0); Platelet Count 412 x10^3/uL (150-450); Red Blood Count 5.07 x10^6/uL (4.1-5.4); Red Cell Distribution Width 13.3 % (11.5-14.0); White Blood Count 20.2 x10^3/uL (4.0-10.5)
[2023-11-02] MEDS ORDERED: Sodium Chloride 0.9% 1000 ML 1,000 ML IV SCH (00:30)
[2023-11-02] MEDS ORDERED: Sodium Chloride 0.9% 1000 ML 1,000 ML ONE (00:37)
[2023-11-02] MEDS ORDERED: Zofran 4 MG/2 ML VIAL ONE (00:37)
[2023-11-02] MEDS ORDERED: Norflex 60 MG/2 ML ONE (00:37)
[2023-11-02] MEDS ORDERED: Hydromorphone 1 mg/ml Injection ONE ×2 (00:37→03:27)
[2023-11-02 00:38] LABS: HCG SERUM TEST NEGATIVE (NEGATIVE)
[2023-11-02 00:39] LABS: ALBUMIN 4.5 g/dL (3.5-5.0); ANION GAP 11.7 MEQ/L (5-15); BILIRUBIN,TOTAL 0.5 mg/dL (0.2-1.3); Calcium 9.2 mg/dL (8.4-10.2); Creatinine 1 0.56 mg/dL (0.52-1.04); EST GLOMERULAR FILTRATION RATE 126.6 ML/MIN; Potassium 3.8 mmol/L (3.5-5.1); Total Protein 7.9 g/dL (6.3-8.2)
--- NOTE | 2023-11-02 01:35 | XRAY ---
CLINICAL HISTORY:Low back pain; fall COMPARISON: TECHNIQUE:Multiple contiguous axial images were obtained through the lumbar spine without IV contrast. Sagittal and coronal reformatted images were obtained from the axial data. CT scan was performed according to ALARA (as low as reasonably achievable). FINDINGS: The normal lordotic curvature of the lumbar spine is maintained. Lumbar vertebral bodies are maintained in height and alignment. No vertebral destructive changes are seen. T12-L1: No disc bulge, canal stenosis or neuroforaminal narrowing. Subarticular recesses are patent. L1-L2: No disc bulge, canal stenosis or neuroforaminal narrowing. Subarticular recesses are patent. L2-L3: Broad based 2 mm diffuse disc bulge without canal stenosis or neuroforaminal narrowing. Subarticular recesses are patent. L3-L4: Broad based 3 mm diffuse disc bulge without canal stenosis or neuroforaminal narrowing. Subarticular recesses are patent. L4-L5: Broad based 3 mm diffuse disc bulge without canal stenosis or neuroforaminal narrowing. Subarticular recesses are patent. L5-S1: No disc bulge, canal stenosis or neuroforaminal narrowing. Subarticular recesses are patent. Paravertebral soft tissues are unremarkable. IMPRESSION: 1. No obvious vertebral fracture, dislocation, subluxation or collapse seen in the lumbar spine. 2. Mild degenerative disc disease without significant canal stenosis. Electronically Signed by: Dr. Gregory Tejeda MD. (11/02/2023 01:32:17 EST)
[2023-11-02] MEDS ORDERED: TORAdol 30 mg Injection IV ONE (02:46)
[2023-11-02 03:09] LABS: Appearance Clear (Clear); Bacteria None Seen /HPF (None Seen); Bilirubin Negative (Negative); Blood Negative (Negative); Epithelial Cells Rare /HPF (None Seen); Glucose, Urine Negative (Negative); Hyaline Casts NONE SEEN /LPF (0-2); Ketones Negative (Negative); Leukocyte Esterase Negative (Negative); Nitrite Negative (Negative); Ph 6.5 (4.6-8.0); Protein,Urine Dip Negative (Negative); RBC 0-2 /HPF (0-5); Urobilinogen 0.2 mg/dL (0.2); WBC 0-2 /HPF (0-5)
[2023-11-02 03:10] LABS: ADD URINE CULTURE? NO (NO)
[2023-11-02] MEDS ORDERED: TORAdol 30 mg Injection ONE (03:27)
[2023-11-02 04:05] VITALS: RESP 16
[2023-11-02 05:03] VITALS: BP 139/79; PULSE 75; O2SAT 97
== END 2023-11-02 05:15 | disposition home or self-care (01) ==
LOC: ED 22:54
DX: S39.012A Strain of muscle, fascia and tendon of lower back, initial encounter (principal); X50.0XXA Overexertion from strenuous movement or load, initial encounter; Y93.39 Activity, other involving climbing, rappelling and jumping off; Z79.899 Other long term (current) drug therapy; Z28.310 Unvaccinated for COVID-19; Z72.0 Tobacco use
CPT/HCPCS: 36000; 36415; 72131; 80053; 81001; 84703; 85025; 96360; 96361; 96374; 96375; 96376; 99284; J1170; J1885; J2360; J2405

== ENCOUNTER 2024-07-17 12:08 | Emergency (ER) | payer OTHER ==
--- NOTE | 2024-07-17 12:20 | ERPHSYRPT ---
- History of Present Illness Time Seen by Provider: 07/17/24 12:20 Source: patient Exam Limitations: no limitations Physician History: This is an overweight 28-year-old white female patient who has known rash of in between the toes of her left foot and now starting on the toes of the right foot. The rash on the left foot began approximately 2 months ago and was treated with triamcinolone ointment. This did not help in relieving the rash. 2 days ago she noticed anterior proximal streaking. She does not have pain in the calf but she does have some tenderness along the anterior tibia distally (upper ankle on the left side) with palpation. She does not have posterior calf pain. She has no chest pain and no shortness of breath. Similar rash started on the toes of the right foot approximately 1 to 2 weeks ago. Occurred: other (2 months ago left foot and approximately 2 weeks ago right foot. 2 days ago proximal streaking left foot and ankle) Quality: aching Severity of Pain-Max: mild Severity of Pain-Current: mild Lower Extremities Pain: 1st toe: right, 2nd toe: right, 3rd toe: right, 4th toe: right, 5th toe: right Modifying Factors: Improves With: nothing Associated Symptoms: none Allergies/Adverse Reactions: morphine Allergy (Mild, Verified 07/17/24 12:18) Difficulty Breathing Penicillins Allergy (Mild, Verified 07/17/24 12:18) Difficulty Breathing Home Medications: Vilazodone HCl 1 tab PO DAILY 11/01/23 [History] Hx Tetanus, Diphtheria Vaccination/Date Given: Yes Hx Influenza Vaccination/Date Given: No Hx Pneumococcal Vaccination/Date Given: No Travel Risk - International Travel Have you traveled outside of the country in past 3 weeks: No - Emerging Infectious Disease Are you exhibiting symptoms associated with any current EIDs: No - Review of Systems Constitutional: No Symptoms Eyes: No Symptoms Ears, Nose, & Throat: No Symptoms Respiratory: No Symptoms Cardiac: No Symptoms Abdominal/Gastrointestinal: No Symptoms Genitourinary Symptoms: No Symptoms Musculoskeletal: No Symptoms Skin: Cellulitis (Proximal streaking dorsal left foot and left ankle anteriorly. Dry scaly rash toes of both feet and between the toes) Neurological: No Symptoms Psychological: No Symptoms Endocrine: No Symptoms Hematologic/Lymphatic: No Symptoms Immunological/Allergic: No Symptoms All Other Systems: Reviewed and Negative - Past Medical History Pertinent Past Medical History: Yes Neurological History: No Pertinent History ENT History: No Pertinent History Cardiac History: No Pertinent History Respiratory History: No Pertinent History Endocrine Medical History: No Pertinent History Musculoskeletal History: No Pertinent History GI Medical History: Gallbladder Disease History: No Pertinent History Psycho-Social History: Depression Female Reproductive Disorders: No Pertinent History Other Medical History: KIDNEY STONE - Past Surgical History Past Surgical History: Yes Neuro Surgical History: No Pertinent History Cardiac: No Pertinent History Respiratory: No Pertinent History Gastrointestinal: Appendectomy, Hernia Repair Genitourinary: No Pertinent History Musculoskeletal: No Pertinent History Female Surgical History: Section Other Surgical History: TONSILECTOMY, section x3, biopsy to rt breast x3; tumor 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 breast - Female History Hx Last Menstrual Period: NOW - Social History Smoking Status: Current every day smoker How long have you smoked: 10 yrs Exposure to second hand smoke: Yes Drug Use: none Patient Lives Alone: No - Nursing Vital Signs Nursing Vital Signs: Initial Vital Signs Blood Pressure 125/84 07/17/24 12:19 O2 Sat by Pulse Oximetry 97 07/17/24 12:19 Pain Scale Pain Intensity 7 - Physical Exam General Appearance: no apparent distress, alert, anxiety Eyes, Ears, Nose, Throat Exam: normal ENT inspection, moist mucous membranes Neck Exam: normal inspection, non-tender, supple, full range of motion Cardiovascular/Respiratory Exam: chest non-tender, no respiratory distress Gastrointestinal/Abdominal Exam: non-tender Back Exam: normal inspection, normal range of motion, No CVA tenderness, No vertebral tenderness Hips Exam: bilateral: non-tender, normal inspection, normal range of motion, no evidence of injury Legs Exam: bilateral leg: non-tender, normal inspection, normal range of motion, no evidence of injury Knees Exam: bilateral knee: non-tender, normal inspection, normal range of motion, no evidence of injury Ankle Exam: right ankle: non-tender, normal inspection, normal range of motion, no evidence of injury, left ankle: other (Cellulitis distal tibia) Foot Exam: bilateral foot: soft tissue tenderness, swelling, other (Appearance of fungal rash toes of bilateral feet. Left side worse than right) Neuro/Tendon Exam: normal sensation, normal motor functions, normal tendon functions, responds to pain, no evidence tendon injury Mental Status Exam: alert, oriented x 3, cooperative Skin Exam: other SpO2 Interpretation: normal (See above) O2 Delivery: Room Air - Course Nursing assessment & vital signs reviewed: Yes Ordered Tests: Medication Summary Discontinued Medications Generic Name Dose Route Start Last Admin Trade Name Reina PRN Reason Stop Dose Admin Fluconazole 150 mg 07/17/24 13:00 07/17/24 12:58 Fluconazole 150 Mg Tablet PO 07/17/24 13:01 150 mg NOW ONE Administration Trimethoprim/Sulfamethoxazole 1 tab 07/17/24 12:42 07/17/24 12:49 Smz/Tmp Ds Tablet 1 Tablet PO 07/17/24 12:43 1 tab STAT ONE Administration Trimethoprim/Sulfamethoxazole Confirm 07/17/24 12:49 Smz/Tmp Ds Tablet 1 Tablet Administered 07/17/24 12:50 Dose 1 tab PO .STK-MED ONE - Progress Progress: unchanged, pain not gone completely Progress Note: 07/17/24 13:14 My medical decision making and the assignment of low complexity to this patient's medical issue today is based on review of the patient's past medical history, review of the patient's medication list, reviewed patient drug allergy list, history present illness and physical findings on examination. The workup does not require laboratory radiographic studies. Counseled pt/family regarding: diagnosis, need for follow-up Medical Desision Making - Diagnostic Testing Diagnostic test were ordered, analyzed, and reviewed by me: No - Risk of complications The pt has a mod risk of morbidity or mortality based on: Need for prescription drug management - Departure Departure Disposition: Home Clinical Impression: Cellulitis of left foot, Tinea pedis of both feet Condition: Stable Critical Care Time: No Referrals: RUTH CHRISTIE, [employer] [Primary Care Provider] - Follow up/PCP as directed Additional Instructions: Keep your feet clean and dry. Apply the antifungal ointment as prescribed. Call your primary care provider today, 07/17/2024, to obtain a follow-up appointment in the next 3 to 5 days and for possible referral to a machine striper if the current treatment plan is ineffective. Prescriptions: Smz/Tmp Ds Tablet [Bactrim Ds Tablet] 1 udtab PO BID #14 tablet Clotrimazole Cream 30 gm [Lotrimin Cream 30 gm] 30 gm TP BID #30 unit
[2024-07-17 12:27] VITALS: TEMP 98
[2024-07-17] MEDS ORDERED: Diflucan 100 MG PO ONE (12:41)
[2024-07-17 12:47] VITALS: RESP 16
[2024-07-17] MEDS ORDERED: BACTRIM DS TABLET PO ONE (12:49)
[2024-07-17] MEDS: BACTRIM DS TABLET PO ONE (12:49)
[2024-07-17] MEDS: DIFLUCAN PO ONE (12:58)
[2024-07-17] MEDS: NORCO 5/325 MG PO ONE (13:22)
[2024-07-17] MEDS ORDERED: NORCO 5/325 MG ONE (13:24)
[2024-07-17 13:30] VITALS: BP 109/85; PULSE 80; O2SAT 96
== END 2024-07-17 13:34 | disposition home or self-care (01) ==
LOC: ED 12:08
DX: L03.116 Cellulitis of left lower limb (principal); B35.3 Tinea pedis; Z79.899 Other long term (current) drug therapy; Z72.0 Tobacco use
CPT/HCPCS: 99282; A9270-GY